=== PATIENT | female | born 1980 | race Caucasian/White ===

== ENCOUNTER 2016-12-27 21:34 | Emergency (ER) | payer OTHER ==
[~2016-12-27 21:34] MED LIST: APAP/HYDROCODON1 T13 PO; COL100 PO; FLO4 PO; LAC PO; LEVOFLOXACIN500 M1 PO; ZOFRAN ODT4 MG SL
[2016-12-27 21:44] VITALS: BP 142/95
== END 2016-12-27 23:13 | disposition home or self-care (01) ==
LOC: ED 21:34
DX: K08.89 Other specified disorders of teeth and supporting structures (principal); I10 Essential (primary) hypertension
CPT/HCPCS: J1885

== ENCOUNTER 2018-02-03 02:17 | Emergency (ER) | payer MEDICAID ==
[~2018-02-03] VITALS: Ht 162.6 cm; Wt 89.3 kg
[2018-02-03 02:26] VITALS: Ht 162.6 cm; Wt 89.3 kg
[2018-02-03 04:37] VITALS: BP 138/90
== END 2018-02-03 04:37 | disposition home or self-care (01) ==
LOC: ED 02:17
DX: G43.909 Migraine, unspecified, not intractable, without status migrainosus (principal); I10 Essential (primary) hypertension
CPT/HCPCS: J0780; J1885

== ENCOUNTER 2018-08-04 23:49 | Emergency (ER) | payer OTHER ==
[~2018-08-04] VITALS: Ht 162.6 cm; Wt 88.0 kg
[2018-08-05 00:55] LABS: BASOPHIL % 0.4 % (0-2); PLATELET COUNT 164 x10^3mcL (130-400); RED CELL DISTRIBUTION WIDTH 13.5 % (11.5-14.5)
[2018-08-05 01:05] LABS: CALCIUM 8.4 mg/dL (8.5-10.1); CHLORIDE SERUM 109 mmol/L (98-107); CREATININE SERUM 0.9 mg/dL (0.6-1.0); GFR1 > 60 mL/min; GLUCOSE SERUM 90 mg/dL (74-106); POTASSIUM SERUM 3.6 mmol/L (3.5-5.1); SODIUM SERUM 143 mmol/L (136-145)
[2018-08-05 01:10] LABS: ALBUMIN 3.4 g/dL (3.4-5.0); ALKALINE PHOSPHATASE 103 U/L (46-116); ALT/SGPT 18 U/L (14-59); AST/SGOT 16 U/L (15-37); BILIRUBIN TOTAL 0.18 mg/dL (0.20-1.00); LIPASE 193 IU/L (73-393); TOTAL PROTEIN, SERUM 7.4 g/dL (6.4-8.2)
[2018-08-05 02:16] VITALS: BP 142/93
== END 2018-08-05 02:16 | disposition home or self-care (01) ==
LOC: ED 23:49
PROVIDERS: Emergency Medicine
DX: N23 Unspecified renal colic (principal); I10 Essential (primary) hypertension; G43.909 Migraine, unspecified, not intractable, without status migrainosus; F17.210 Nicotine dependence, cigarettes, uncomplicated; M25.512 Pain in left shoulder; Z87.19 Personal history of other diseases of the digestive system
CPT/HCPCS: J1885; J2405; J7030

== ENCOUNTER 2018-10-16 20:43 | Emergency (ER) | payer OTHER ==
[~2018-10-16] VITALS: Ht 162.6 cm; Wt 88.9 kg
[2018-10-16 20:47] VITALS: Ht 162.6 cm; Wt 88.9 kg
[2018-10-16 22:40] VITALS: BP 121/99
== END 2018-10-16 22:50 | disposition home or self-care (01) ==
LOC: ED 20:43
DX: K42.9 Umbilical hernia without obstruction or gangrene (principal); I10 Essential (primary) hypertension; Z87.442 Personal history of urinary calculi

== ENCOUNTER 2019-06-15 22:34 | Inpatient (IN) | payer OTHER ==
[~2019-06-15] VITALS: Ht 162.6 cm; Wt 90.5 kg
[2019-06-15 22:39] VITALS: Ht 162.6 cm; Wt 90.5 kg
[2019-06-16 00:49] LABS: BASOPHIL % 0.4 % (0-2); PLATELET COUNT 236 x10^3mcL (130-400); RED CELL DISTRIBUTION WIDTH 13.7 % (11.5-14.5)
[2019-06-16 00:56] LABS: CALCIUM 9.1 mg/dL (8.5-10.1); CARBON DIOXIDE 24.5 mmol/L (21-32); CHLORIDE SERUM 106 mmol/L (98-107); CREATININE SERUM 0.9 mg/dL (0.6-1.0); GFR1 > 60 mL/min; GLUCOSE SERUM 111 mg/dL (74-106); SODIUM SERUM 140 mmol/L (136-145)
[2019-06-16 01:00] LABS: ALBUMIN 3.8 g/dL (3.4-5.0); ALKALINE PHOSPHATASE 100 U/L (46-116); ALT/SGPT 22 U/L (14-59); AMYLASE 40 U/L (25-115); AST/SGOT 11 U/L (15-37); BILIRUBIN TOTAL 0.32 mg/dL (0.20-1.00); LIPASE 61 IU/L (73-393); TOTAL PROTEIN, SERUM 8.2 g/dL (6.4-8.2)
[2019-06-16 04:48] VITALS: BP 136/81
[2019-06-16 06:48] LABS: CARBON DIOXIDE 25.2 mmol/L (21-32); CHLORIDE SERUM 110 mmol/L (98-107); CREATININE SERUM 0.7 mg/dL (0.6-1.0); GFR1 > 60 mL/min; GLUCOSE SERUM 94 mg/dL (74-106); POTASSIUM SERUM 3.9 mmol/L (3.5-5.1); SODIUM SERUM 144 mmol/L (136-145)
[2019-06-16 06:50] LABS: BASOPHIL % 0.2 % (0-2); PLATELET COUNT 205 x10^3mcL (130-400); RED CELL DISTRIBUTION WIDTH 13.4 % (11.5-14.5)
[2019-06-16 08:13] LABS: microscopic required? YES; urine erythrocyte TRACE (NEGATIVE)
[2019-06-16 08:17] VITALS: BP 120/75; BP 151/98
[2019-06-16 13:07] VITALS: BP 120/75
== END 2019-06-16 14:47 | disposition home or self-care (01) | DRG 793 ==
LOC: ED 22:34 → MU 06-16 02:44
PROVIDERS: Internal Medicine; Student in an Organized Health Care Education/Training Program; ADMIT Internal Medicine
PROC: 0W9F0ZZ Drainage of Abdominal Wall, Open Approach (ICD-10-PCS; principal; 2019-06-16)
DX: K91.872 Postprocedural seroma of a digestive system organ or structure following a digestive system procedure (principal); F17.210 Nicotine dependence, cigarettes, uncomplicated; G43.909 Migraine, unspecified, not intractable, without status migrainosus; I10 Essential (primary) hypertension; Y83.8 Other surgical procedures as the cause of abnormal reaction of the patient, or of later complication, without mention of misadventure at the time of the procedure; Z82.49 Family history of ischemic heart disease and other diseases of the circulatory system
CPT/HCPCS: G0378; J0696; J2270; J2405; J3490; J7030; J7060; Q9967

== ENCOUNTER 2019-06-19 21:22 | Inpatient (IN) | payer OTHER ==
[~2019-06-19] VITALS: Ht 162.6 cm; Wt 89.6 kg
--- NOTE | 2019-06-19 22:04 | NUR ---
PT PRESENTS TO ED WITH C/O PERIUMBILICAL PAIN FROM A HERNIA REPAIR SURGERY SHE HAD ON 06/09. PT STATES THAT SHE THEN WAS HERE A FEW DAYS AGO WHEN SHE WAS ADMITTED AND SHE STATES THEY DRAINED HER INCISION. PT IS HERE TODAY FOR C/O PAIN TO THE SURGICAL INCISION. PT STATES THAT IT FEELS HARD. PT HAS WOUND COVERED WITH BANDAGES AT THIS TIME. NO CIRCUMFERENCING REDNESS OR WARMTH IS NOTED. AWIATING MSE TO REMOVE BANDAGES. WOUND DOES FEEL SLIGHTLY FIRM TO TOUCH. PT AMBULATING TO RESTROOM AT THIS TIME FOR URINE SPECIMEN. NAD AT THIS TIME. AWIATING MSE
[2019-06-19 22:06] LABS: BASOPHIL % 0.6 % (0-2); PLATELET COUNT 209 x10^3mcL (130-400); RED CELL DISTRIBUTION WIDTH 13.1 % (11.5-14.5)
--- NOTE | 2019-06-19 22:10 | NUR ---
FIRM MASS PALPABLE ABOVE UMBILICUS. NO PUSS OR REDNESS OR DRAINAGE NOTED TO INCISION
[2019-06-19 22:18] LABS: CALCIUM 8.6 mg/dL (8.5-10.1); CARBON DIOXIDE 28.7 mmol/L (21-32); CHLORIDE SERUM 110 mmol/L (98-107); CREATININE SERUM 0.7 mg/dL (0.6-1.0); GFR1 > 60 mL/min; GLUCOSE SERUM 88 mg/dL (74-106); POTASSIUM SERUM 3.4 mmol/L (3.5-5.1); SODIUM SERUM 147 mmol/L (136-145)
[2019-06-19 22:22] LABS: ALKALINE PHOSPHATASE 87 U/L (46-116); ALT/SGPT 31 U/L (14-59); AST/SGOT 22 U/L (15-37); BILIRUBIN TOTAL 0.2 mg/dL (0.20-1.00); LIPASE 111 IU/L (73-393); TOTAL PROTEIN, SERUM 7.1 g/dL (6.4-8.2)
[2019-06-19 22:24] LABS: ALBUMIN 3.3 g/dL (3.4-5.0)
[2019-06-19 22:52] LABS: microscopic required? NO
[2019-06-19 22:59] LABS: UA SPECIFIC GRAVITY >=1.030 (1.005-1.035); urine erythrocyte NEGATIVE (NEGATIVE)
[2019-06-20] MEDS ORDERED: HYDROCHLOROTH12.5 M2 (03:32)
--- NOTE | 2019-06-20 03:46 | NUR ---
REPORT GIVEN TO NICOLA LOVE
--- NOTE | 2019-06-20 03:56 | NUR ---
RECEIVED PT VIA GUERNY FROM ED ACCOMPANIED BY NURSE. AMBULATED WITH AND STEADY GAIT TO BED. NO DISTRESS NOTED. MED-SURG PT. PT PREVIOUSLY ADMITTED HER FOR IRIS DIAGNOSIS, RECEIVED AN DRAINAGE OF ABSCESS AND SENT HOME WITH RICARDO, PAIN RETURN A FEW DAYS AFTER. RESP EVEN AND UNLABORED ON ROOM AIR. NO SOB NOTED. DENIES CHEST PAIN/PRESSURE. REPORTS PAIN UNDER CONTROL AT THIS TIME. WHEN PAIN PRESENT, THROBBING IN NATURE, HOT/SORE WHICH SHOOTS TO PELVIC AREA. IN THE RFA, INFUSING FLAGYL FROM ED. IV IS PATENT AND INTACT. NO REDNESS OR SWELLING NOTED. RADIAL AND PEDAL PULSES PALPABLE AND PRESENT BILATERALLY. TRACE EDEMA NOTED BLE. PT DENIES HAVING TAKEN HER HYDROCHOLOROTHIAZIDE FOR SOME TIME D/T POST SURGERY AND BP HAS BEEN WNL. ABD IS ROUND/SOFT W/ ACTIVE BS X4. PT REPORTS LBM TODAY, LOOSE, PT REPORTS LOOSE STOOL SINCE THE 06/16 S/P EPISODES OF CONSTIPATION TO WHICH SHE TOOK STOOL SOFTENERS. ABD SURGICAL INCISION WELL APPROXIMATED WITH ISLAND DSG INTACT. MINIMAL ERYTHEMA AND SWELLING NOTED ON SURROUND TISSUE. HARDNESS NOTED WITH PALPATION. NO DRAINAGE OR ODOR NOTED. REPORTS DYSURIA UPON URINATION. ORIENTED PATIENT TO ROOM, CALL LIGHT SYSTEM, AND BED CONTROLS. SAFETY AND COMFORT MEASURES IN PLACE. BED IS LOCKED AND IN THE LOWEST POSITION. SIDE RAILS UP X2. BELONGING AT BEDSIDE. CALL LIGHT IS WITHIN REACH. INSTRUCTED TO CALL FOR ASSISTANCE. WILL CONTINUE TO MONITOR.
[2019-06-20 04:47] VITALS: BP 143/89
[2019-06-20 05:27] LABS: AMPHETAMINE QUAL UR POSITIVE (See below)
--- NOTE | 2019-06-20 07:26 | NUR ---
ENDORSEDE ALL CARE TO DAYSHIFT NURSE, NO ACUTE DISTRESS NOTED. PT RESTING IN BED WITH EYES CLOSED, PRINTED SURGERY FORMS IN CASE OF SX, ALL COMFORT AND SAFETY MEASURES PROVIDED FOR, CALL LIGHT WITHIN REACH, BED IN LOWEST POSITION.
[2019-06-20 07:42] LABS: BASOPHIL % 0.4 % (0-2); PLATELET COUNT 177 x10^3mcL (130-400); RED CELL DISTRIBUTION WIDTH 13.1 % (11.5-14.5)
[2019-06-20 07:50] LABS: CARBON DIOXIDE 28.8 mmol/L (21-32); CHLORIDE SERUM 110 mmol/L (98-107); CREATININE SERUM 0.6 mg/dL (0.6-1.0); GFR1 > 60 mL/min; GLUCOSE SERUM 96 mg/dL (74-106); MAGNESIUM 1.7 mg/dL (1.8-2.4); PHOSPHOROUS 2.9 mg/dL (2.5-4.9); POTASSIUM SERUM 3.2 mmol/L (3.5-5.1); SODIUM SERUM 145 mmol/L (136-145)
--- NOTE | 2019-06-20 08:00 | NUR ---
PATIENT RECEIVED SLEEPY BUT ARROUSABLE. APTIENT AHS DIMINISHED BUT CLEAR BREATH SOUNDS AND BOWEL SOUNDS ACTIVE. WOUND SITE INTACT AND DRY AND NO SITES OF INFECTION TOPICALLY NOTED. PATIENT THOUGH HAS FLUID COLLECTION UNDER THE SURFACE THAT HAS BEEN A REOCCURING ISSUE. PATIENT IS TO SEE THE SURGEON FOR POSSIBLE INTERVENTION. PATIENT AHS BEEN OOB AND NPO INDICATED FOR THIS POSSBILE SURGERY.SHE HAD RECEIVED ROCEPHIN AND FLAGYL IN THE EMERGENCY AND NO FUTHER CONTINUATION OF ANTIBIOTICS NOTED. PATIENT HAS VITALS AT THIS TIME AT 97.6, 86, 18, 143/89, 99%. PATIENT HAS SOME TRACE EDEMA AND ADMITS TO NOT TAKING HER HTN MEDICATION ORDERED. PATIENT AHS POTASSIUM OF 3.4 AND NO COVERAGE WAS ORDERED SO FAR. PATIENT HAS NOTED BEEN WITH ANY SOB OR RESPIRATORY DISTRESS. NOTE FEVER WAS DOCUMENTED. PATIETN HAS NORMAL WBCS AND THE PATEINT HAS NEGATIVE BLOOD CULTURE. THE INDICATION IS THE BODY HAS WALLED OFF THE INFECTION AND THE FLUIDS IS TRAPPED IN THE ABDOMEN BEHIND THE INCISIONAL SITE. PATIENT HAS NOTED HX OF METHAMPHETAMINE AND CANNIBOID USE ON THE UDS. SHE HAS AN ISLAND DRESSING TO [facility] SITE AND INTACT. HX OF KIDNEY STONES AND HTN. AND TUBAL LIGATION AND UMBILICAL HERNIA AND REPAIR ON THE AT [facility]IO. A U C
[2019-06-20 08:27] VITALS: BP 123/76
--- NOTE | 2019-06-20 10:20 | NUR ---
CALLED THE RESIDENT TO FIND OUT WHO WAS CARING FOR THE PATEINT AND TO PLEASE ADDRESS THE NEED FOR MORE ANTIBIOTICS. PATIENT HAS RECEIVED DOSING IN THE ER IDNICATE BUT NO ORDERS FOR FURTHER THERAPY.
[2019-06-20 16:45] VITALS: BP 126/82
--- NOTE | 2019-06-20 17:06 | NUR ---
NOTED NEW ORDER FOR FARHAN PALACIO TO SEE THE PATIENT FOR SURGICAL CONSULATATION. PATIENT HAS AREEIVED THE ULTRAM AND APPEARS TO HAVE BEEN EFFECTIVE. SHE KEEPS REMOVING THE DRESSING AND PLACING IT BACK ON HER ABDOMEN.WILL ENCOURAGE TO LEAVE THE SITE ALONE.
--- NOTE | 2019-06-20 18:53 | NUR ---
SEEN BY DR PALACIO AND HER PAIN AND ABDOMEN DISCUSSED. PATIENT HAD HER SURGERY DONE BY DR PALACIO ON 06/09. AWAITING PLAN OF CAR.
--- NOTE | 2019-06-20 18:54 | NUR ---
TO SOON TO GIVE THE ULTRAM AND PATIENT INDICATED SHE WILL WAIT.
--- NOTE | 2019-06-20 19:20 | NUR ---
RECEIVED PT RESTING IN BED, PT APPEARS CONCERNED IN REGARDS TO POSSIBLE PROCEDURE AND SHE HAS NOT EATEN IN OVER 24 HOURS. PT S/P HERNIA REPAIR WITH DR. FARHAN PALACIO IN [place] (06/09/19), PT ACQUIRED A POSSIBLE ABSCESS TO WHICH PT ADMITTED ON 06/[address] LEWIS PERFORMED A DRAINAGE OF ABSCESS, AND SENT HOME. PT REPORTS PAIN RETURNED AFTER A FEW DAYS TO WHICH BROUGHT HER IN THIS ADMISSION. PT HAS A POSSIBLE SEROMA AT THE INCISION SITE AND IS GETTING PREPPED FOR A BEDSIDE NEEDLE ASPIRATION OF SEROMA. WILL OBTAIN CONSENT ONCE DR. PALACIO EXPLAINED PROCEDURE IN DEPTH. RESP EVEN AND UNLABORED ON RA, DENIES SOB. AND SOFT, ROUND, HARD UPON PALPATION AT INCISION. GENERALIZED WEAKNESS, ABD INCISION HORIZONTAL WITH ISLAND DSG INTACT. NO DRAINAGE NOTED. INCISION WELL APPROXIMATED. IV SITE TO THE RFA, SIGHT BRUISE AT IV SITE ALTHOUGH PT DENIES PAIN, FLUSHING WELL. ALL COMFORT AND SAFETY MEASURES PROVIDED FOR, CALL LIGHT WITHIN REACH, BED IN LOWEST POSITION, WILL CONTINUE TO MONITOR.
[2019-06-20 20:18] VITALS: BP 143/95
--- NOTE | 2019-06-20 20:30 | NUR ---
DR. PALACIO AT BEDSIDE, ACCOMPANIED BY NURSE TO PERFORM NEEDLE ASPIRATION. PROCEDURE EXPLAINED TO PATIENT BY DR. PALACIO AND PT PREMEDICATED WITH DILAUDID 1MG IVP X1 PER DR PALACIO. CONSENT SIGNED AND RISK/BENEFITS EXPLAINED. SUPPLIED AT THE BEDSIDE. PT ABD PREPPED WITH BETADINE, AND SEROSANGENOUS FLUID ASPIRATED= 20ML. RECEIVED ORDERS FOR WOUND CX AND GRAM STAIN. STERILE TECHNIQUE MAINTAINED, PT TOLERATED WELL. BED RETURNED TO LOWEST POSITION, AND PT REQUESTING FOOD. ORDER FOR REGULAR DIET OBTAINED AND PT RESTING COMFORTABLE IN BED. ALL COMFORT AND SAFETY MEASURES PROVIDED FOR, CALL LIGHT WITHIN REACH, BED IN LOWEST POSITION, WILL CONTINUE TO MONITOR.
[2019-06-21 04:27] VITALS: BP 110/70
--- NOTE | 2019-06-21 05:00 | NUR ---
PT RESTED IN INTERVALS DURING SHIFT, NO ACUTE CHANGES OCCURRING OVERNIGHT. PT TOLERATED SANDWICH AND SPRITE WELL AFTER PROCEDURE OF NEEDLE ASPIRATE AT BEDSIDE, IV SITE REMAINS PATENT AND NS @ 100ML/HR. NO REDNESS, SWELLING OR PAIN NOTED. PT WOUND CULTURE OF ASPIRATE CONTENT SENT DOWN TO LAB WELL GRAM STAIN PER DR. PALACIO. PT AWARE PLAN IS FOR D/C TODAY, ALL COMFORT AND SAFETY MEASURES PROVIDED FOR, CALL LIGHT WITHIN REACH, BED IN LOWEST POSITION, WILL CONTINUE TO MONITOR.
[2019-06-21 06:39] LABS: CALCIUM 7.7 mg/dL (8.5-10.1); CARBON DIOXIDE 24.9 mmol/L (21-32); CHLORIDE SERUM 109 mmol/L (98-107); CREATININE SERUM 0.5 mg/dL (0.6-1.0); GFR1 > 60 mL/min; GLUCOSE SERUM 92 mg/dL (74-106); PHOSPHOROUS 3.1 mg/dL (2.5-4.9); POTASSIUM SERUM 3.6 mmol/L (3.5-5.1); SODIUM SERUM 141 mmol/L (136-145)
[2019-06-21 06:41] LABS: BASOPHIL % 0.4 % (0-2); PLATELET COUNT 162 x10^3mcL (130-400); RED CELL DISTRIBUTION WIDTH 13.1 % (11.5-14.5)
--- NOTE | 2019-06-21 08:00 | NUR ---
RECEIVED PATIENT WITH CLEAR BREATH SOUND AND BOWEL SOUNDS ACTIVE. TOLERATED THE DIET OFFFERED AND NO NAUSEA NOTED. PATIENT HAS A BANDAID TO THE SITE OF ASPIRATION AND NO DRAINAGE NOTED AT THI TIME. APTIENT IS AMBULATORY AND COMPLAINED OF PAIN AND OFFERED AND GAVE ULTRAM FOR ABDOMINAL AND HEADACHE PAIN. VITALS AT THIS TIME ARE STABLE. PATIETN HAS BEEN WITH SOME TRACE EDEMA TO THE LOWER EXTREMTIES AND HAS NOT BEEN TAKING WHER HYDROCHLORITHIAZIDE WHILE HERE AT HOSPITAL. PATIENT HAS BEEN TOLERATING DIET AND IV WAS CONTINUED BUT NOW WTIH SWELLING AND BURING AND STOPPED INDICATED. POSSIBLE DISCHARGE HOME TODAY. AWAITING ORDERS.
[2019-06-21 09:33] VITALS: BP 120/81
--- NOTE | 2019-06-21 11:35 | NUR ---
SEEN BY DR PALACIO AND PLAN IS FOR DICHARGE HOME TODAY. PATIENT IV REMOVED DUE TO SOME SWELLIGN AT THE SITE. THE ULTRAM GIVEN EARLIER WAS EFFECTIVE FOR RELIEVING PAIN TO THE ABDOMEN AND HEAD.
[2019-06-21 12:20] VITALS: BP 120/81
--- NOTE | 2019-06-21 12:24 | NUR ---
ORDERS RECEIVED FOR DISCHARGE.PATIENT IS ANXIOUS TO GO HOME TO HER OWN BED. NO INDICATON OF DISTRESS AND ADVISED ON FOLLOW UP AND WHAT TO LOOK FOR IF INFECTED. MOTHER CALLED AND WILL BE PICKING HER UP.
== END 2019-06-21 12:50 | disposition home or self-care (01) | DRG 813 ==
LOC: ED 21:22 → MU 06-20 02:52
PROVIDERS: Emergency Medicine; ADMIT Internal Medicine
PROC: 0W9F3ZX Drainage of Abdominal Wall, Percutaneous Approach, Diagnostic (ICD-10-PCS; principal; 2019-06-20)
DX: L76.34 Postprocedural seroma of skin and subcutaneous tissue following other procedure (principal); E87.0 Hyperosmolality and hypernatremia; E87.6 Hypokalemia; D64.9 Anemia, unspecified; I10 Essential (primary) hypertension; G43.909 Migraine, unspecified, not intractable, without status migrainosus; Z98.51 Tubal ligation status; Z82.49 Family history of ischemic heart disease and other diseases of the circulatory system; Y83.8 Other surgical procedures as the cause of abnormal reaction of the patient, or of later complication, without mention of misadventure at the time of the procedure
CPT/HCPCS: C9113; G0378; J0696; J1170; J2270; J2405; J3490; J7030; J7060; Q9967

== ENCOUNTER 2019-06-22 16:04 | Emergency (ER) | payer OTHER ==
[~2019-06-22 16:04] MED LIST changes: +HYDROCHLOROTH12.5 M2
== END 2019-06-22 16:17 | disposition left against medical advice (07) ==
LOC: ED 16:04
DX: Z53.21 Procedure and treatment not carried out due to patient leaving prior to being seen by health care provider (principal)